=== PATIENT | male | born 1950 | race Caucasian/White ===

== ENCOUNTER 2023-05-28 05:05 | Inpatient (IN) | payer MEDICARE, OTHER ==
[~2023-05-28] VITALS: Ht 188 cm; Wt 119.7 kg
[2023-05-28] VITALS (8 sets, daily range): BP systolic 132–152; BP diastolic 70–81; PULSE 49–84; TEMP 97.6–98.1
[~2023-05-28 05:05] MED LIST: CRESTOR10 MG PO; LORTAB 5/500 501 TAB PO; NORVASC10 MG PO
--- NOTE | 2023-05-28 07:10 | NUR ---
Patient has arrived via EMS to room 328. He urgently went to the bathroom upon arrival. Patient in foul mood and using curse words, attempting to do admission, but not will to answer questions, he wants he to do paperwork when she arrives. Bed alarm on. Vss on room air. Will closely monitor
[2023-05-28] MEDS ORDERED: ASPIRIN 81M81 MG/TA2 PO (07:16)
[2023-05-28] MEDS ORDERED: COREG 3.123.125 MG/T PO (07:17)
[2023-05-28] MEDS ORDERED: LIPITOR 80MG80 MG PO (07:17)
[2023-05-28] MEDS ORDERED: VITAMIND3 5000 PO (07:18)
[2023-05-28] MEDS ORDERED: PLAVIX 75MG TAB75 MG PO (07:18)
[2023-05-28] MEDS ORDERED: COZAAR100 MG PO (07:19)
[2023-05-28] MEDS ORDERED: ARICEPT10 MG PO (07:19)
[2023-05-28] MEDS ORDERED: OMEGA-3 1000 MG1 CAP PO (07:20)
[2023-05-28] MEDS ORDERED: PROTONIX 40MG T40 MG PO (07:20)
[2023-05-28] MEDS ORDERED: PREVIDENT5000PLUS DT (07:21)
[2023-05-28] MEDS ORDERED: [UNRECOGNIZED DRUG - OTHER] TP (07:21)
[2023-05-28] MEDS ORDERED: NITROSTAT0.4 MG/TAB SL (07:22)
[2023-05-28] MEDS ORDERED: Ondansetron 4 MG/2 ML VIAL IV PRN ×2 (07:30→08:30)
[2023-05-28] MEDS ORDERED: Acetaminophen 325 MG TAB PO PRN (07:30)
[2023-05-28] MEDS ORDERED: LR 1,000 ML IV SCH ×2 (07:45→09:00)
[2023-05-28] MEDS ORDERED: *Potassium Replacement Protocol MC SCH (08:30)
[2023-05-28] MEDS ORDERED: Pantoprazole 40 MG in NS 10 ML IV SCH (09:00)
[2023-05-28 09:15] LABS: BASO % 0.3 % (0.0-2.0); EOS # 0.1 K/mm3 (0.0-0.7); GRAN # 3.1 K/mm3 (1.4-6.5); GRAN % 78.2 % (42.2-75.2); LYMPH # 0.4 K/mm3 (1.2-3.4); LYMPH % 10.9 % (20.0-51.0); MEAN CELL VOLUME 86 fl (80.0-100.0); MEAN CORPUSCULAR HGB CONC 32 g/dl (33.0-37.0); MEAN PLATELET VOLUME 8.7 fl (7.4-10.4); MONO # 0.3 K/mm3 (0.1-0.6); MONO % 8.1 % (1.7-9.3); PLATELET COUNT 211 K/mm3 (130-400); REDCELL DISTRIBUTION WIDTH-CV 12.9 % (11.5-14.5)
[2023-05-28 09:24] LABS: MEAN CORPUSCULAR HEMOGLOBIN 28 pg (27-31)
[2023-05-28 09:27] LABS: CALCIUM 8.2 mg/dL (8.4-10.2); CREATININE, serum 1.26 mg/dL (0.72-1.25); POTASSIUM 4.8 mmol/L (3.5-4.5)
--- NOTE | 2023-05-28 10:30 | NUR ---
Initial visit attempt; Nurse with patient, It Trainee left card offering Spiritual Care and God's blessings.
--- NOTE | 2023-05-28 10:38 | NUR ---
Patient resting in bed, his at his side, she was helpful with admission paperwork. Med rec reviewed. Hospitalist team rounded & rounded, plan of care reviewed. Patient able to tolerate clear liquids without nausea. Aware of being NPO at oooo. Patient ambulated halls with therapy & did well. Will monitor closely.
--- NOTE | 2023-05-28 13:02 | NUR ---
Patient resting in bed without needs, he was up to the bathroom & voided without BM. Tolrerating clears. Will monitor
[2023-05-28 13:44] LABS: HEMATOCRIT 23.8 % (42.0-52.0); HEMOGLOBIN 7.5 g/dl (13.5-18.0)
[2023-05-28 13:53] LABS: INR 1.3 (0.8-3.0); PROTHROMBIN TIME 13.8 SECONDS (9.7-12.8)
--- NOTE | 2023-05-28 15:27 | NUR ---
Wheel Adjuster met with patient to discuss discharge planning. Patient lives in [place] with his , Aliya (ph#[phone]) who is at bedside. Patient sees Dr. Garay for primary care and obtains medications from [facility] in . Patient does not use any DME, is independent with ADLS, and is able to drive within [place]. Patient advised Aliya is his DPOA-HC. Discharge Plan; Home
[2023-05-28] MEDS ORDERED: Ondansetron 4 MG/2 ML VIAL IV SCH (16:45)
[2023-05-28] MEDS ORDERED: PEG3350/Sod Sulf,Bicarb,Cl/KCl Oral Soln 4,000 ML Bottle PO SCH (17:30)
--- NOTE | 2023-05-28 19:01 | NUR ---
Patient tolerating bowel prep. Patient having positive results from Bowel prep. Bloody watery stool. Denies nausea or pain. IVf as ordered. Vss. His remains at bedside and helpful. Briefs provided
--- NOTE | 2023-05-28 19:24 | NUR ---
report received from aziza hart. pt sitting on the side of the bed with at bedside. pt is almost finished with bowel prep. dark red liquid stools continue. pt denies pain. call light in reach. all needs met at this time.
--- NOTE | 2023-05-28 21:03 | NUR ---
shift assessment complete, see documentation. pt denies pain at this time. pt tolerated hs meds and ivf well. pt now having dark brown liquid stools. pt asymptomatic of blood loss. pt is not diaphoretic or pale. pt reports he is feeling well. surgery consent signed. pt at bedside. call light in reach. all needs met at this time.
[2023-05-29] VITALS (23 sets, daily range): BP systolic 135–164; BP diastolic 57–93; PULSE 58–78; TEMP 97.5–98.4
[2023-05-29 06:20] LABS: BASO % 0.4 % (0.0-2.0); EOS # 0.1 K/mm3 (0.0-0.7); EOS % 2.8 % (0.0-4.0); GRAN # 1.7 K/mm3 (1.4-6.5); GRAN % 59.8 % (42.2-75.2); LYMPH # 0.8 K/mm3 (1.2-3.4); MEAN CELL VOLUME 85 fl (80.0-100.0); MEAN CORPUSCULAR HGB CONC 32 g/dl (33.0-37.0); MEAN PLATELET VOLUME 8.6 fl (7.4-10.4); MONO # 0.3 K/mm3 (0.1-0.6); MONO % 9.6 % (1.7-9.3); PLATELET COUNT 180 K/mm3 (130-400); RED BLOOD COUNT 2.35 M/mm3 (4.20-5.60); REDCELL DISTRIBUTION WIDTH-CV 12.8 % (11.5-14.5)
[2023-05-29 06:21] LABS: HEMATOCRIT 19.9 % (42.0-52.0); MEAN CORPUSCULAR HEMOGLOBIN 27 pg (27-31)
[2023-05-29 06:25] LABS: HEMOGLOBIN 6.4 g/dl (13.5-18.0)
--- NOTE | 2023-05-29 06:29 | NUR ---
lab called to report critical lab value of hgb at 6.4. called dr la. new order for 1unit prbc.
[2023-05-29 06:45] LABS: ALBUMIN 2.8 gm/dL (3.4-4.8); CALCIUM 8.1 mg/dL (8.4-10.2); CREATININE, serum 1.27 mg/dL (0.72-1.25); MAGNESIUM 1.8 mg/dL (1.6-2.6); PHOSPHOROUS 3.2 mg/dL (2.3-4.7); POTASSIUM 4.3 mmol/L (3.5-4.5)
--- NOTE | 2023-05-29 09:20 | NUR ---
PT RESTING IN BED WITH NO PAIN AT THIS TIME. PT A/O X4 WITH SLURRED SPEECH AND TROUBLE FINDING WORDS AT TIMES. EDUCATION PROVIDED ON LBOOD TRANFUSION. NO QUESTIONS AT THIS TIME. VITALS STABLE, STEADY GAIT TO BATHROOM. NEW IV PLACED IN RIGHT FOREARM BY IVS. BLOOD TRANFUSING, WILL CONTINUE OT MONITOR.
[2023-05-29] MEDS ORDERED: Lidocaine PF 2% (20 MG/ML) 5 ML VIAL ONE (10:57)
[2023-05-29] MEDS ORDERED: LR 1,000 ML IV SCH (11:00)
--- NOTE | 2023-05-29 12:30 | NUR ---
PT UP TO ROOM AT THIS TIME WITH NO PAIN, VITALS STABLE. PT TOLERTING CLEAR LIQUIDS. FMAILY AT BEDSIDE. WILL CONTINUE TO MONITOR.
--- NOTE | 2023-05-29 19:21 | NUR ---
report received from ayaka hart. pt resting in bed watching tv. pt denies pain. bed alarm on. call light in reach. all needs met at this time.
[2023-05-29 20:54] LABS: HEMOGLOBIN 7.4 g/dl (13.5-18.0)
[2023-05-29] MEDS ORDERED: Donepezil 5 MG TAB PO SCH (21:00)
--- NOTE | 2023-05-29 22:39 | NUR ---
shift assessment complete, see documentation. pt denies pain. pt tolerated hs meds well. pt recheck hgb is 7.4. pt continues to have bloody loose stools. pt remains asymptomatic of blood loss. bed alarm on. call light in reach. all needs met at this time.
[2023-05-30] VITALS (16 sets, daily range): BP systolic 135–164; BP diastolic 50–83; PULSE 55–77; TEMP 97.4–98
--- NOTE | 2023-05-30 05:54 | NUR ---
pt slept well tonight. pt ambulated with steady gait to the bathroom. bed alarm on. call light in reach. all needs met at this time.
[2023-05-30 07:04] LABS: BASO % 0.7 % (0.0-2.0); EOS # 0.1 K/mm3 (0.0-0.7); EOS % 2.8 % (0.0-4.0); GRAN # 1.8 K/mm3 (1.4-6.5); GRAN % 63.3 % (42.2-75.2); LYMPH # 0.6 K/mm3 (1.2-3.4); LYMPH % 22.2 % (20.0-51.0); MEAN CELL VOLUME 86 fl (80.0-100.0); MEAN CORPUSCULAR HGB CONC 32 g/dl (33.0-37.0); MEAN PLATELET VOLUME 8.3 fl (7.4-10.4); MONO # 0.3 K/mm3 (0.1-0.6); MONO % 10.6 % (1.7-9.3); PLATELET COUNT 183 K/mm3 (130-400); RED BLOOD COUNT 2.65 M/mm3 (4.20-5.60); REDCELL DISTRIBUTION WIDTH-CV 12.9 % (11.5-14.5)
[2023-05-30 07:08] LABS: HEMATOCRIT 22.9 % (42.0-52.0); HEMOGLOBIN 7.4 g/dl (13.5-18.0); MEAN CORPUSCULAR HEMOGLOBIN 28 pg (27-31)
[2023-05-30 07:31] LABS: ALBUMIN 2.9 gm/dL (3.4-4.8); CALCIUM 8.3 mg/dL (8.4-10.2); CREATININE, serum 1.13 mg/dL (0.72-1.25); MAGNESIUM 1.8 mg/dL (1.6-2.6); PHOSPHOROUS 3.3 mg/dL (2.3-4.7); POTASSIUM 4.1 mmol/L (3.5-4.5)
--- NOTE | 2023-05-30 07:40 | NUR ---
Shift report received from night RN. No events reported overnight. Pt awake & up to bathroom w/ SBA. One loose bloody stool noted w/ bright red blood noted in toilet. Pt denies nausea, abd. pain, & abd tenderness w/ palpation. Dr. Knight at the bedside for eval. Pt denies any needs at this time. Call light in reach. Fall precautions in place.
--- NOTE | 2023-05-30 09:56 | NUR ---
Pt sitting up in recliner. SBA provided as pt stood from recliner & transferred to bed. Pt resting supine. Blood consent signed - pt had no questions. Pt denies pain/discomfort. Denies other needs. Call light in reach. Fall precautions in place.
[2023-05-30] MEDS ORDERED: NS 500 ML IV ONE (10:30)
--- NOTE | 2023-05-30 10:41 | NUR ---
Pt resting supine in bed. PRBC infusion intiated approx 2 minutes ago. VSS. Pt denies any itching, shortness of breath, chest pain, general pain/discomfort. Denies other needs. at the bedside. Call light in reach. Fall precautions in place.
--- NOTE | 2023-05-30 12:28 | NUR ---
Pt sleeping supine in bed w/ HOB slightly elevated. Resps are even & unlabored. VSS. PRBC infusion continues w/o sx of IV infiltration. Pt has call light in reach. remains at the bedside.
--- NOTE | 2023-05-30 13:01 | NUR ---
Supervision provided as pt stood from bed to ambulate to the bathroom w/o AD. Gait steady. Pt voided. No BM. Denies pain/discomfort. Denies other needs. Call light in reach.
--- NOTE | 2023-05-30 13:34 | NUR ---
Initial visit; Patient thanked Tie Carrier for stopping and confirmed he was from the [place], [place] area. Patient wasn't interested in talking, so Tie Carrier wished him well and offered God's blessings.
[2023-05-30 14:33] LABS: HEMATOCRIT 24.9 % (42.0-52.0); HEMOGLOBIN 8.1 g/dl (13.5-18.0)
--- NOTE | 2023-05-30 15:13 | NUR ---
Pt up to ambulate in [place] w/ HORSE STUD MANAGER.
--- NOTE | 2023-05-30 17:20 | NUR ---
Pt lying supine in bed w/ & son at the bedside. Pt denies pain, discomfort, abd. pain, nausea. Denies other needs. Had questions about pending surgery tomorrow. Printout for Open Colectomy given to pt & questions answered regarding surgery time. Pt has his call light in reach.
--- NOTE | 2023-05-30 20:46 | NUR ---
PT IN BED, IS ALERT AND ORIENTED X4, HAS OCC APHASIA FROM HX CVA, RT SIDE WEAKNESS. HAS IVF TO RT HAND INFUSING WITHOUT PROBLEM, INT TO RFA FLUSHES WELL. VOIDING WITHOUT PROBLEM. WILL BE NPO AT MIDNIGHT FOR SURGERY TOMORROW. PT AWARE. BED ALARM SET FOR SAFETY.
[2023-05-31] VITALS (20 sets, daily range): BP systolic 129–164; BP diastolic 51–83; PULSE 55–79; TEMP 97.7–98.4
--- NOTE | 2023-05-31 | NUR ---
NPO FOR SURGERY IN AM.
[2023-05-31] MEDS ORDERED: LR 1,000 ML IV SCH ×2 (05:00→14:00)
--- NOTE | 2023-05-31 06:00 | NUR ---
PT HAS BEEN NPO SINCE MIDNIGHT. VOIDING WITHOUT PROBLEM. IVF TO RT HAND INFUSING WITHOUT PROBLEM.
[2023-05-31 07:31] LABS: EOS # 0.1 K/mm3 (0.0-0.7); EOS % 4.4 % (0.0-4.0); GRAN # 1.9 K/mm3 (1.4-6.5); LYMPH # 0.5 K/mm3 (1.2-3.4); LYMPH % 16.8 % (20.0-51.0); MEAN CELL VOLUME 83 fl (80.0-100.0); MEAN CORPUSCULAR HGB CONC 34 g/dl (33.0-37.0); MEAN PLATELET VOLUME 8.3 fl (7.4-10.4); MONO # 0.4 K/mm3 (0.1-0.6); MONO % 12.5 % (1.7-9.3); PLATELET COUNT 181 K/mm3 (130-400); RED BLOOD COUNT 3.15 M/mm3 (4.20-5.60); REDCELL DISTRIBUTION WIDTH-CV 13.6 % (11.5-14.5)
[2023-05-31 07:33] LABS: HEMATOCRIT 26.2 % (42.0-52.0); HEMOGLOBIN 8.8 g/dl (13.5-18.0); MEAN CORPUSCULAR HEMOGLOBIN 28 pg (27-31)
[2023-05-31 07:43] LABS: CALCIUM 8.7 mg/dL (8.4-10.2); CREATININE, serum 1.19 mg/dL (0.72-1.25); MAGNESIUM 1.8 mg/dL (1.6-2.6); PHOSPHOROUS 3.5 mg/dL (2.3-4.7); POTASSIUM 4.1 mmol/L (3.5-4.5)
--- NOTE | 2023-05-31 09:06 | NUR ---
PT RESTING IN BED WITH NO PAIN AT THIS TIME. [facility] FAMILY AT BEDSIDE. PT REMAINS NPO FOR SURGERY TODAY. WILL CONTINUE TO MONITOR.
[2023-05-31] MEDS ORDERED: Succinylcholine PF 100 MG/5 ML SYRINGE/POLY AMP IV ONE (09:48)
[2023-05-31] MEDS ORDERED: Rocuronium 50 MG/5 ML Multi-Dose VIAL ONE ×2 (09:48→11:48)
[2023-05-31] MEDS ORDERED: fentaNYL 50 MCG/ML 5 ML VIAL ONE (09:49)
[2023-05-31] MEDS ORDERED: dexAMETHasone 10 MG/ML VIAL ONE (09:49)
[2023-05-31] MEDS ORDERED: Midazolam 2 MG/2 ML VIAL ONE (09:49)
[2023-05-31] MEDS ORDERED: Lidocaine PF 2% (20 MG/ML) 5 ML VIAL ONE ×2 (09:49→11:59)
[2023-05-31] MEDS ORDERED: metroNIDAZOLE 100 ML IV ONE (11:22)
[2023-05-31] MEDS ORDERED: ePHEDrine 50 MG/ML VIAL ONE (11:25)
[2023-05-31] MEDS ORDERED: Topical Skin Adhesive 1 EACH (1 ML) TOP ONE (11:54)
[2023-05-31] MEDS ORDERED: Ketamine 500 MG/10 ML VIAL ONE (11:58)
[2023-05-31] MEDS ORDERED: Ondansetron 4 MG/2 ML VIAL ONE (13:22)
[2023-05-31] MEDS ORDERED: hydrALAZINE 20 MG/ML 1 ML VIAL IV PRN (13:30)
[2023-05-31] MEDS ORDERED: HYDROmorphone 2 MG/1 ML VIAL IV PRN (13:30)
[2023-05-31] MEDS ORDERED: Meperidine 50 MG/ML 1 ML VIAL IV PRN (13:30)
[2023-05-31] MEDS ORDERED: fentaNYL 50 MCG/ML 2 ML VIAL IV PRN (13:30)
[2023-05-31] MEDS ORDERED: Ondansetron 4 MG/2 ML VIAL IV PRN ×2 (13:30→14:00)
[2023-05-31] MEDS ORDERED: oxyCODONE 5 MG TAB PO PRN (14:00)
[2023-05-31] MEDS ORDERED: Naloxone 0.4 MG/ML VIAL IV PRN (14:00)
[2023-05-31] MEDS ORDERED: Morphine 4 MG/ML VIAL IV PRN (14:00)
[2023-05-31] MEDS ORDERED: Acetaminophen 500 MG TAB PO SCH (14:55)
--- NOTE | 2023-05-31 15:20 | NUR ---
PT UP TO ROOM AT THIS TIME. VITALS STABLE, PT IN OBVIOUS DISCOMFORT, HOME CPAP APPLIED AND PAIN MEDICATION PROVIDED PER PACU NURSE. 4 LAP SITES AND TRANSVERSE SITE TO SKIN GLUE WELL APPROX. FAMILY AT BEDSIDE. RT CALLED TO LOOK AT HOME CPAP ASSESS PT. WILL CONTINUE TO MONITOR.
[2023-05-31] MEDS ORDERED: fentaNYL 50 MCG/ML 2 ML VIAL ONE (15:58)
--- NOTE | 2023-05-31 20:00 | NUR ---
PT IN BED, HAS BIPAP FROM HOME ON, SPOUSE AT BEDSIDE. PT WILL ROUSE TO NAME. VSS. HAS IVF TO RFA INFUSING WITHOUT PROBLEM. ASSISTED WITH USE OF URINAL, VOIDS 300CC OF YELLOW URINE. ABD DISTENDED WITH ROBOTIC SITES X4 AND SMALL LOWER TRANSVERSE INCISION, ALL GLUED AND DRY. BED ALARM ON FOR SAFETY.
--- NOTE | 2023-05-31 22:25 | NUR ---
PT MORE AWAKE, REPORTS ABD PAIN, MEDICATED WITH HS MEDS INCLUDING OXYCODONE 5MG PO. TAKES MEDS WITHOUT PROBLEM. PT STATES "I WILL DO BETTER TOMORROW". VOIDS PER URINAL WITH ASSIST.
[2023-06-01] VITALS (12 sets, daily range): BP systolic 109–164; BP diastolic 63–71; PULSE 73–115; TEMP 97.4–100.4
--- NOTE | 2023-06-01 03:52 | NUR ---
PT MEDICATED WITH SCHEDULED ES TYLENOL AND PRN OXYCODONE 5MG PO FOR ABD PAIN. VOIDS PER URINAL WITH ASSIST. CONTINUES TO REST WELL WITH BIPAP ON.
[2023-06-01 05:40] LABS: BASO % 0.2 % (0.0-2.0); GRAN # 8.1 K/mm3 (1.4-6.5); LYMPH # 0.3 K/mm3 (1.2-3.4); LYMPH % 3.4 % (20.0-51.0); MEAN CELL VOLUME 85 fl (80.0-100.0); MEAN CORPUSCULAR HGB CONC 34 g/dl (33.0-37.0); MEAN PLATELET VOLUME 8.2 fl (7.4-10.4); MONO # 0.6 K/mm3 (0.1-0.6); PLATELET COUNT 199 K/mm3 (130-400); RED BLOOD COUNT 3.12 M/mm3 (4.20-5.60); REDCELL DISTRIBUTION WIDTH-CV 13.6 % (11.5-14.5)
[2023-06-01 05:47] LABS: HEMATOCRIT 26.6 % (42.0-52.0); HEMOGLOBIN 8.9 g/dl (13.5-18.0); MEAN CORPUSCULAR HEMOGLOBIN 29 pg (27-31)
[2023-06-01 06:34] LABS: ALBUMIN 2.8 gm/dL (3.4-4.8); CALCIUM 8.4 mg/dL (8.4-10.2); CREATININE, serum 1.48 mg/dL (0.72-1.25); MAGNESIUM 1.7 mg/dL (1.6-2.6); PHOSPHOROUS 4.4 mg/dL (2.3-4.7); POTASSIUM 4.4 mmol/L (3.5-4.5)
--- NOTE | 2023-06-01 08:48 | NUR ---
PT RESTING IN BED IWTH PAIN 7/10 IN ABDOMEN, PAIN MEDICATION PROVIDED PER EMAR. PT TOLERATING CLEAR LIQUIDS, FAMILY AT BEDSIDE, PT NOT TOLERATING MOVEMENT IN BED WELL. INCISION SITES WELL APROX WITH NO SIGNS OF INFECTION. CPAP AT BEDSIDE. WILL CONTINUE TO MONITOR.
[2023-06-02] VITALS (12 sets, daily range): BP systolic 143–164; BP diastolic 72–88; PULSE 73–89; TEMP 98–99.5
[2023-06-02 07:35] LABS: ALBUMIN 2.7 gm/dL (3.4-4.8); CALCIUM 8.7 mg/dL (8.4-10.2); CREATININE, serum 1.29 mg/dL (0.72-1.25); MAGNESIUM 1.9 mg/dL (1.6-2.6); PHOSPHOROUS 2.5 mg/dL (2.3-4.7); POTASSIUM 3.9 mmol/L (3.5-4.5)
--- NOTE | 2023-06-02 09:06 | NUR ---
Patient resting in bed. Awake & alert. He ambulated halls this am with therapy and did well. Patient not wanting to order breakfast until his arrives. He denies nausea. Int patent,tele on. Abdomen rounded, edges well approximated, open to air. Will monitor.
[2023-06-02] MEDS ORDERED: Pantoprazole 40 MG in NS 10 ML IV SCH (10:28)
--- NOTE | 2023-06-02 11:10 | NUR ---
Patient resting in bed. & rounded, both aware patient had and episode of emesis this am after having tomato juice with his breakfast. EVALUATION SPECIALIST assisted with a shower after. Patient wanting to rest.
--- NOTE | 2023-06-02 15:11 | NUR ---
Patient resting in bed. He has had visitors this afternoon. He ambulated [place] with [employer] using walker, He has been drinking water without nausea and tolerated a little jello. Minimal appetite. Up to the bathroom, just voided. Int. Will let him rest with CPAP on.
--- NOTE | 2023-06-02 17:52 | NUR ---
Patient resting in bed. Family home for the day. Dinner ordered, minimal interest. No complaints of pain or nausea. Cpap on & resting. Will report off to nightnurse
[2023-06-03] VITALS (12 sets, daily range): BP systolic 137–165; BP diastolic 64–90; PULSE 70–102; TEMP 97.5–99.2
--- NOTE | 2023-06-03 09:40 | NUR ---
pt a&ox3 resting in bed. vss and tele in place. meds given and assessment complete. pt denies pain and nausea. tolerating breakfast without difficulty. bowel sounds are active, pt had bowel movement this morning. x4 lap and 1 transverse incisions are cdi. potassium replaced per protocol. INT to right forearm patent. scds to ble. pt denies needs at this time. call light in reach.
[2023-06-03] MEDS ORDERED: Potassium Bicarbonate/Citrate 20 MEQ Effervescent TAB PO ONE (11:00)
[2023-06-03] MEDS ORDERED: Clopidogrel 75 MG TAB PO SCH (14:37)
[2023-06-03] MEDS ORDERED: Carvedilol 3.125 MG TAB PO SCH (17:00)
[2023-06-03] MEDS ORDERED: Losartan 50 MG TAB PO SCH (21:00)
[2023-06-04] VITALS (7 sets, daily range): BP systolic 133–1360; BP diastolic 69–86; PULSE 71–88; TEMP 97.6–98.2
[2023-06-04 08:11] LABS: HEMATOCRIT 27.7 % (42.0-52.0); HEMOGLOBIN 8.4 g/dl (13.5-18.0)
[2023-06-04 08:25] LABS: CALCIUM 8.6 mg/dL (8.4-10.2); CREATININE, serum 1.14 mg/dL (0.72-1.25); MAGNESIUM 1.9 mg/dL (1.6-2.6); POTASSIUM 4.2 mmol/L (3.5-4.5)
--- NOTE | 2023-06-04 08:57 | NUR ---
pt a&ox3 resting in bed just finishing breakfast. pt tolerating diet, denies nausea and pain. bowel sounds are active. pt had medium loose bowel movement this morning. vss and tele in place. abdominal incisions are cdi and open to air. INT to right forearm patent. pt denies needs. call light in reach.
[2023-06-04] MEDS ORDERED: TYLENOL 500MG500 MG PO (09:05)
[2023-06-04] MEDS ORDERED: ZOFRAN 4MG T4 MG/TAB PO (09:05)
[2023-06-04] MEDS ORDERED: ROXICODONE 55 MG/TAB PO (09:06)
--- NOTE | 2023-06-04 13:30 | NUR ---
Int discontinued. discharge instructions given to pt and , all questions answered. pt escorted to personal vehicle by wheelchair.
== END 2023-06-04 13:45 | disposition home or self-care (01) | DRG 330 ==
LOC: SURG 05:05
PROVIDERS: Internal Medicine; Internal Medicine Gastroenterology; Physician Assistant; Surgery; ADMIT Internal Medicine
PROC: 0DTF4ZZ Resection of Right Large Intestine, Percutaneous Endoscopic Approach (ICD-10-PCS; principal; 2023-05-28)
PROC: 8E0W4CZ Robotic Assisted Procedure of Trunk Region, Percutaneous Endoscopic Approach (ICD-10-PCS; 2023-05-28)
PROC: 0DBH8ZX Excision of Cecum, Via Natural or Artificial Opening Endoscopic, Diagnostic (ICD-10-PCS; 2023-05-28)
DX: C18.0 Malignant neoplasm of cecum (principal); K92.1 Melena; N17.9 Acute kidney failure, unspecified; D64.9 Anemia, unspecified; N18.30 Chronic kidney disease, stage 3 unspecified; R00.1 Bradycardia, unspecified; I12.9 Hypertensive chronic kidney disease with stage 1 through stage 4 chronic kidney disease, or unspecified chronic kidney disease; I25.10 Atherosclerotic heart disease of native coronary artery without angina pectoris; Z95.1 Presence of aortocoronary bypass graft; Z86.73 Personal history of transient ischemic attack (TIA), and cerebral infarction without residual deficits; E78.5 Hyperlipidemia, unspecified
CPT/HCPCS: A4314; A9284; C9113; J0330; J0690; J1100; J1170; J1836; J2250; J2270; J2405; J2704; J2765; J2795; J3010; J7040; J7120; P9016